=== PATIENT | female | born 1990 | race Caucasian/White ===

== ENCOUNTER 2017-06-03 11:19 | Emergency (ER) | payer OTHER | END 2017-06-03 15:25 | disposition home or self-care (01) | LOC: E/R 15:25 | DX: O99.89 Other specified diseases and conditions complicating pregnancy, childbirth and the puerperium (principal); H60.91 Unspecified otitis externa, right ear; Z3A.16 16 weeks gestation of pregnancy | CPT/HCPCS: 99283; Z7502 ==

== ENCOUNTER 2017-10-31 17:55 | Inpatient (IN) | payer OTHER ==
[2017-10-31] MEDS ORDERED: MISOPROSTOL 200 MCG TAB PR (22:00)
[2017-10-31] MEDS ORDERED: OXYTOCIN 30 UNITS/LR 500 ML IV (22:00)
[2017-10-31] MEDS ORDERED: LIDOCAINE 1% (MPF) 30 ML INJ INJ (22:00)
[2017-10-31] MEDS ORDERED: IBUPROFEN 600 MG TAB PO (22:00)
[2017-10-31] MEDS ORDERED: METHYLERGONOVINE 0.2 MG INJ IM (22:00)
[2017-10-31] MEDS ORDERED: CARBOPROST 250 MCG INJ IM (22:00)
[2017-10-31] MEDS: LACTATED RINGER'S 1,000 ML IV* (22:02)
[2017-10-31 22:54] LABS: ADD MAN DIFF? NO
[2017-10-31 22:59] LABS: WHITE BLOOD COUNT 10.1 10^3/ul (4.8-10.8)
[2017-10-31 22:59] LABS: BASOPHILS % 0.3 % (0.0-2.0); EOSINOPHILS # 0.1 10^3/ul (0.0-0.5); EOSINOPHILS % 0.6 % (0.0-7.0); HEMATOCRIT 35.6 % (37.0-47.0); HEMOGLOBIN 11.8 g/dl (12.0-16.0); IMMATURE GRANS #M 0.09 10^3/ul; IMMATURE GRANS % (M) 0.9 %; LYMPHOCYTES # 2.3 10^3/ul (0.8-2.9); LYMPHOCYTES % 22.8 % (15.0-51.0); MEAN CORPUSCULAR HEMOGLOBIN 29.2 pg (29.0-33.0); MEAN CORPUSCULAR HGB CONC 33.1 g/dl (32.0-37.0); MEAN CORPUSCULAR VOLUME 88.1 fl (82.0-101.0); MEAN PLATELET VOLUME 11.4 fl (7.4-10.4); MONOCYTE # 0.6 10^3/ul (0.3-0.9); MONOCYTES % 5.7 % (0.0-11.0); NEUTROPHILS % 69.7 % (39.0-77.0); PLATELET COUNT 189 10^3/UL (140-415); RED BLOOD COUNT 4.04 10^6/ul (4.20-5.40)
[2017-10-31] MEDS ORDERED: MISOPROSTOL 100 MCG TAB PO (23:00)
[2017-10-31 23:16] LABS: GLUCOSE 73 mg/dl (70-220)
[2017-10-31 23:18] LABS: INR 0.91; PROTIME 12.3 Sec (11.9-14.9)
[2017-10-31 23:19] LABS: PARTIAL THROMBOPLASTIN TIME 27.1 Sec (25.0-35.0)
[2017-10-31 23:48] LABS: HEPATITIS B SURFACE ANTIGEN NEGATIVE (NEGATIVE)
[2017-11-01] MEDS: MISOPROSTOL 25 MCG CAPSULE PO ×4 (00:23→12:00)
[2017-11-01] MEDS: LACTATED RINGER'S 1,000 ML IV* ×3 (04:37→22:00)
[2017-11-01] MEDS: ACCU-CHEK XX ×2 (08:00→09:35)
[2017-11-01] MEDS: LACTATED RINGER'S 1,000 ML IV (15:22)
[2017-11-01] MEDS ORDERED: FENTAnyl 2MCG/ML-ROPIV 0.2% 100 ML (15:39)
[2017-11-01] MEDS ORDERED: DIPHENHYDRAMINE 50 MG INJ IV (16:00)
[2017-11-01] MEDS ORDERED: NALOXONE (0.4 MG/ML) INJ IV (16:00)
[2017-11-01] MEDS: FENTAnyl 2MCG/ML-ROPIV 0.2% 100 ML BAG EPI ×2 (16:08→22:29)
[2017-11-01] MEDS: DEXTROSE 5%-LR 1,000 ML IV (17:26)
[2017-11-01] MEDS: ONDANSETRON 4 MG INJ IV ×2 (18:21→22:15)
[2017-11-01] MEDS: OXYTOCIN 30 UNITS/LR 500 ML IV (18:58)
[2017-11-01 19:15] LABS: RAPID PLASMA REAGIN NONREACTIVE (NR)
[2017-11-02] MEDS: DEXTROSE 5%-LR 1,000 ML IV ×3 (04:22→15:51)
[2017-11-02] MEDS: FENTAnyl 2MCG/ML-ROPIV 0.2% 100 ML BAG EPI (05:42)
[2017-11-02] MEDS: LACTATED RINGER'S 1,000 ML IV* ×2 (06:00→11:34)
[2017-11-02] MEDS: OXYTOCIN 30 UNITS/LR 500 ML IV ×2 (07:24→07:52)
[2017-11-02] MEDS ORDERED: CARBOPROST 250 MCG INJ IM (08:00)
[2017-11-02] MEDS ORDERED: DIPHENHYDRAMINE 50 MG INJ IV (08:00)
[2017-11-02] MEDS ORDERED: ZOLPIDEM 5 MG TAB PO (08:00)
[2017-11-02] MEDS ORDERED: OXYCODONE/ASPIRIN (4.88/325) TAB PO (08:00)
[2017-11-02] MEDS ORDERED: METHYLERGONOVINE 0.2 MG INJ IM (08:00)
[2017-11-02] MEDS ORDERED: SENNA/DOCUSATE NA (8.6MG/50MG) TAB PO (08:00)
[2017-11-02] MEDS ORDERED: MISOPROSTOL 200 MCG TAB PR (08:00)
[2017-11-02] MEDS ORDERED: ACETAMINOPHEN 325 MG TAB PO (08:00)
[2017-11-02] MEDS ORDERED: DIBUCAINE 1% 30 GM OINT PR (08:00)
[2017-11-02] MEDS ORDERED: ONDANSETRON 4 MG INJ IV (08:00)
[2017-11-02] MEDS ORDERED: OXYTOCIN 30 UNITS/LR 500 ML IV (08:00)
[2017-11-02] MEDS: WITCH HAZEL/GLYCERIN PAD PR (11:33)
[2017-11-02] MEDS: LANOLIN 7 GM TUBE TOP (11:33)
[2017-11-02] MEDS: IBUPROFEN 600 MG TAB PO ×3 (11:33→23:28)
[2017-11-03] MEDS: IBUPROFEN 600 MG TAB PO ×4 (05:46→23:38)
[2017-11-03] MEDS ORDERED: ONDANSETRON 4 MG INJ (07:18)
[2017-11-03] MEDS ORDERED: DEXAMETHASONE 4 MG/ML 1 ML INJ (07:18)
[2017-11-03] MEDS ORDERED: FENTAnyl 50 MCG/ML VIAL (07:18)
[2017-11-03] MEDS ORDERED: NEOSTIGMINE 3 MG/3 ML SYRINGE (07:18)
[2017-11-03] MEDS ORDERED: PROPOFOL 20 ML (07:18)
[2017-11-03] MEDS ORDERED: MIDAZOLAM 1 MG/ML 2 ML INJ (07:18)
[2017-11-03] MEDS ORDERED: LIDOCAINE 2% (SDV) 5 ML INJ (07:18)
[2017-11-03] MEDS ORDERED: ROCURONIUM 50 MG INJ (07:18)
[2017-11-03] MEDS ORDERED: GLYCOPYRROLATE 0.4 MG INJ (07:18)
[2017-11-03 09:21] LABS: ADD MAN DIFF? NO
[2017-11-03 09:28] LABS: WHITE BLOOD COUNT 11.9 10^3/ul (4.8-10.8)
[2017-11-03 09:28] LABS: BASOPHILS % 0.3 % (0.0-2.0); EOSINOPHILS # 0.1 10^3/ul (0.0-0.5); EOSINOPHILS % 0.9 % (0.0-7.0); HEMATOCRIT 32.3 % (37.0-47.0); HEMOGLOBIN 10.5 g/dl (12.0-16.0); LYMPHOCYTES # 1.9 10^3/ul (0.8-2.9); MEAN CORPUSCULAR HEMOGLOBIN 28.8 pg (29.0-33.0); MEAN CORPUSCULAR HGB CONC 32.5 g/dl (32.0-37.0); MEAN CORPUSCULAR VOLUME 88.7 fl (82.0-101.0); MEAN PLATELET VOLUME 11.2 fl (7.4-10.4); MONOCYTE # 0.5 10^3/ul (0.3-0.9); MONOCYTES % 3.8 % (0.0-11.0); NEUTROPHIL # 9.3 10^3/ul (1.6-7.5); NEUTROPHILS % 78.5 % (39.0-77.0); PLATELET COUNT 142 10^3/UL (140-415); RED BLOOD COUNT 3.64 10^6/ul (4.20-5.40); RED CELL DISTRIBUTION WIDTH 14.7 % (11.5-14.5)
[2017-11-03] MEDS: WITCH HAZEL/GLYCERIN PAD PR (21:37)
[2017-11-03] MEDS: BENZOCAINE 20% 56 ML SPRAY TOP (21:38)
[2017-11-04] MEDS: IBUPROFEN 600 MG TAB PO ×2 (05:40→11:31)
[2017-11-04] MEDS: DIPHTH/TET/ACEL PERTUSS (ADULT) 0.5 ML VIAL IM* (11:01)
[2017-11-04] MEDS: MEASLES,MUMPS,RUBELLA VACCINE INJ SC* (11:02)
== END 2017-11-04 12:30 | disposition home or self-care (01) | DRG 775 ==
LOC: OBT 17:55 → L-D 11-01 10:02 → PP1 11-02 09:18 → L-D 17:56 → OBT 21:57 → L-D 21:57
PROVIDERS: Obstetrics & Gynecology
PROC: 10E0XZZ Delivery of Products of Conception, External Approach (ICD-10-PCS; principal; 2017-11-02)
PROC: 0HQ9XZZ Repair Perineum Skin, External Approach (ICD-10-PCS; 2017-11-02)
DX: O24.429 Gestational diabetes mellitus in childbirth, unspecified control (principal); O70.0 First degree perineal laceration during delivery; Z3A.38 38 weeks gestation of pregnancy; Z37.0 Single live birth
CPT/HCPCS: 62319; 76815; 76818; 82947; 82962; 85025; 85610; 85730; 86592; 86850; 86900; 86901; 87340; 90715

== ENCOUNTER 2017-12-12 05:39 | Emergency (ER) | payer OTHER ==
[2017-12-12] MEDS: IBUPROFEN 600 MG TAB PO (06:30)
[2017-12-12 06:36] LABS: ADD MAN DIFF? NO
[2017-12-12 06:38] LABS: BASOPHILS % 0.4 % (0.0-2.0); EOSINOPHILS # 0.1 10^3/ul (0.0-0.5); EOSINOPHILS % 1.1 % (0.0-7.0); HEMATOCRIT 38.1 % (37.0-47.0); HEMOGLOBIN 12.4 g/dl (12.0-16.0); LYMPHOCYTES # 1.9 10^3/ul (0.8-2.9); LYMPHOCYTES % 17.7 % (15.0-51.0); MEAN CORPUSCULAR HEMOGLOBIN 28.9 pg (29.0-33.0); MEAN CORPUSCULAR HGB CONC 32.5 g/dl (32.0-37.0); MEAN CORPUSCULAR VOLUME 88.8 fl (82.0-101.0); MEAN PLATELET VOLUME 9.5 fl (7.4-10.4); MONOCYTE # 0.5 10^3/ul (0.3-0.9); MONOCYTES % 4.7 % (0.0-11.0); NEUTROPHIL # 7.9 10^3/ul (1.6-7.5); NEUTROPHILS % 75.5 % (39.0-77.0); PLATELET COUNT 268 10^3/UL (140-415); RED BLOOD COUNT 4.29 10^6/ul (4.20-5.40); RED CELL DISTRIBUTION WIDTH 12.6 % (11.5-14.5)
[2017-12-12 06:38] LABS: WHITE BLOOD COUNT 10.4 10^3/ul (4.8-10.8)
[2017-12-12 06:43] LABS: ADD UMIC YES; UR ASCORBIC ACID NEGATIVE (NEGATIVE); UR BACTERIA FEW /HPF (NONE SEEN); UR BILIRUBIN (Dip) NEGATIVE (NEGATIVE); UR BLOOD (Dip) NEGATIVE (NEGATIVE); UR CLARITY SLIGHTLY CLOUDY (CLEAR); UR COLOR YELLOW (YELLOW); UR GLUCOSE (Dip) NEGATIVE (NEGATIVE); UR KETONES (Dip) NEGATIVE (NEGATIVE); UR LEUKOCYTE ESTERASE (Dip) 1+ Leu/ul (NEGATIVE); UR NITRITE (Dip) NEGATIVE (NEGATIVE); UR RBC 2 /HPF (0-5); UR SPECIFIC GRAVITY (Dip) 1.015 (1.003-1.030); UR SQUAMOUS EPITHELIAL CELL FEW /HPF (FEW); UR TOTAL PROTEIN (Dip) NEGATIVE (NEGATIVE); UR UROBILINOGEN (Dip) NEGATIVE (NEGATIVE); UR WBC 7 /HPF (0-5)
[2017-12-12 07:12] LABS: ALANINE AMINOTRANSFERASE 28 IU/L (13-69); ALBUMIN 3.5 g/dl (3.3-4.9); ALBUMIN/GLOBULIN RATIO 0.97; ALKALINE PHOSPHATASE 120 IU/L (42-121); ANION GAP 15 (8-16); ASPARTATE AMINO TRANSFERASE 24 IU/L (15-46); BILIRUBIN,INDIRECT 0.5 mg/dl (0-1.1); BILIRUBIN,TOTAL 0.5 mg/dl (0.2-1.3); BLOOD UREA NITROGEN 14 mg/dl (7-20); CALCIUM 9.5 mg/dl (8.4-10.2); CARBON DIOXIDE 23 mmol/L (21-31); CHLORIDE 108 mmol/L (97-110); GLUCOSE 110 mg/dl (70-220); LIPASE 62 U/L (23-300); POTASSIUM 4.2 mmol/L (3.5-5.1); SODIUM 142 mmol/L (135-144); TOTAL PROTEIN 7.1 g/dl (6.1-8.1)
== END 2017-12-12 07:25 | disposition home or self-care (01) ==
LOC: FTE 07:25
DX: N39.0 Urinary tract infection, site not specified (principal)
CPT/HCPCS: 36415; 76856; 80053; 81001; 83690; 84703; 85025; 99284-25

== ENCOUNTER 2018-05-26 04:02 | Emergency (ER) | payer OTHER | END 2018-05-26 06:38 | disposition home or self-care (01) | LOC: FTE 04:02 | DX: J40 Bronchitis, not specified as acute or chronic (principal) | CPT/HCPCS: 71046; 81025; 99283-25 ==